=== PATIENT | male | born 1965 | race African-American/Black ===

== ENCOUNTER 2018-12-04 00:10 | Observation (INO) | payer OTHER ==
[~2018-12-04] VITALS: Ht 185.4 cm; Wt 90.7 kg
[2018-12-04] MEDS ORDERED: ASPIRIN 81 MG CHEW TAB PO ONE ×3 (00:15→13:45)
[2018-12-04 01:23] LABS: BASOPHILS # (AUTO) 0.1 (0.0-0.1); BASOPHILS % 0.9 % (0.0-1.0); EOSINOPHILS % 0.5 % (0.0-6.0); HEMOGLOBIN 15.2 g/dL (14.0-18.0); LYMPHOCYTES # (AUTO) 3.5 (1.0-3.2); MEAN CORPUSCULAR HEMOGLOBIN 29.6 pg (28-32); MEAN CORPUSCULAR HGB CONC 33.8 g/dL (31-35); MEAN CORPUSCULAR VOLUME 87.5 fL (81-99); MONOCYTES # (AUTO) 0.6 (0.2-0.8); MONOCYTES % 9.4 % (4.4-11.3); NEUTROPHILS # (AUTO) 1.7 (2.1-6.9); PLATELET COUNT 229 x10e3/uL (140-360); RED BLOOD COUNT 5.14 x10e6/uL (4.3-5.7); RED CELL DISTRIBUTION WIDTH 14.2 % (11.7-14.4)
[2018-12-04 01:24] LABS: AMPHETAMINES SCREEN,URINE NEGATIVE (NEGATIVE); BENZODIAZEPINES SCREEN,URINE NEGATIVE (NEGATIVE); PHENCYCLIDINE SCREEN,URINE NEGATIVE (NEGATIVE)
[2018-12-04 02:19] LABS: SODIUM 139 mmol/L (136-145)
[2018-12-04 02:20] LABS: ALANINE AMINOTRANSFERASE 28 IU/L (0-55); ALBUMIN 4.4 g/dL (3.5-5.0); ALBUMIN/GLOBULIN RATIO 1.5 (0.8-2.0); ALKALINE PHOSPHATASE 78 IU/L (40-150); ANION GAP 12.5 mmol/L (8-16); BLOOD UREA NITROGEN 19 mg/dL (7-26); BUN/CREATININE RATIO 15 (6-25); CALCIUM 9.8 mg/dL (8.4-10.2); CARBON DIOXIDE 27 mmol/L (22-29); CHLORIDE 103 mmol/L (98-107); CREATINE KINASE 777 IU/L (30-200); EST GLOMERULAR FILTRATION RATE > 60 ML/MIN (60-); GLUCOSE 89 mg/dL (74-118); POTASSIUM 3.5 mmol/L (3.5-5.1)
[2018-12-04] MEDS ORDERED: MORPHINE SULFATE INJ 4 MG/ML INJ 1ML IV PRN (02:30)
[2018-12-04] MEDS ORDERED: ONDANSETRON HCL INJ 2MG/ML 2ML 2 MG/ML VIAL IV PRN (02:30)
--- NOTE | 2018-12-04 02:37 | Diagnostic Imaging Report ---
EXAMINATION: CHEST SINGLE (NOT PORTABLE) INDICATION: ^CHEST PAIN ^[id number] ^0110 ^Y COMPARISON: None FINDINGS: TUBES and LINES: None. LUNGS: Lungs are well inflated. Lungs are clear. There is no evidence of pneumonia or pulmonary edema. PLEURA: No pleural effusion or pneumothorax. HEART AND MEDIASTINUM: The cardiomediastinal silhouette is unremarkable. BONES AND SOFT TISSUES: No acute osseous lesion. Soft tissues are unremarkable. UPPER ABDOMEN: No free air under the diaphragm. IMPRESSION: No acute thoracic abnormality. Signed by: Dr. Frederick Healy M.D. on 12/04/2018 2:34 AM
--- OUTSIDE RECORDS SUMMARY | 2018-12-04 03:27 | XMS REPORT ---
Author Author 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 Allergies, Adverse Reactions, Alerts This patient has no known allergies or adverse reactions. Medications This patient has no known medications. Results Test Description Test Time Test Comments Text Results Atomic Results Result Comments CHEST SINGLE (NOT PORTABLE) 2018-12-04 02:33:00 [place] [address] Patient Name: SETH REYNOSO MR #: [id number] : 1965 Age/Sex: 53/M Req #: [id number] Adm Physician: Ordered by: ALPESH YANCEY DO Report #: [id number] Location: ER Room/Bed: Procedure: [id number] DX/CHEST SINGLE (NOT PORTABLE) Exam Date: 12/04/18 Exam Time: 0110 REPORT STATUS: Signed EXAMINATION: CHEST SINGLE (NOT PORTABLE) I NDICATION: CHEST PAIN [id number] 0110 Y COMPARISON: None FINDINGS: TUBES and LINES: None. LUNGS: Lungs are well inflated. Lungs are clear. There is no evidence of pneumonia or pulmonary edema. PLEURA: No pleural effusion or pneumothorax. HEART AND MEDIASTINUM: The cardiomediastinal silhouette is unremarkable. BONES AND SOFT TISSUES: No acute osseous lesion. Soft tissues are unremarkable. UPPER ABDOMEN: No free air under the diaphragm. IMPRESSION: No acute thoracic abnormality. Signed by: Dr. Frederick Golden M.D. on 12/04/2018 2:34 AM Dictated By: BAILEE GOLDEN MD, MD 3 Transcribed By: PIERCE on 12/04/18233 COPY TO: ALPESH YANCEY DO
[2018-12-04 07:40] LABS: CREATINE KINASE 671 IU/L (30-200)
[2018-12-04] MEDS ORDERED: SODIUM CHLORIDE 0.9% 1000ML 1,000 ML IV SCH (09:45)
[2018-12-04 09:48] LABS: CHOL/HDL RATIO 2.8 (3.9-4.7)
[2018-12-04 10:09] LABS: THYROID STIMULATING HORMONE 2.216 uIU/mL (0.350-4.940)
[2018-12-04 11:52] VITALS: BP 112/83
[2018-12-04 12:01] VITALS: BP 112/83
[2018-12-04 12:02] VITALS: BP 112/83
--- NOTE | 2018-12-04 16:11 | Consultation ---
DATE OF CONSULTATION: 12/04/2018 REASON FOR CONSULTATION: Chest pain. HISTORY OF PRESENT ILLNESS: This is a 53-year-old male with history of hyperlipidemia and murmur. The patient presents to [facility] ER with complaints of left-sided chest pain. Cardiology was consulted to evaluate the patient. The patient seen in ER, reports yesterday he had several episodes of left-sided sharp pain, lasting few seconds, nonradiating, nonexertional. States he had played some golf without any problems, however, when he went home, noted the chest pain episodes. Denies any shortness of breath during the episode of any dizziness, lightheadedness. Currently, the patient has no chest pain since admission. Troponin I negative x2, less than 0.001; however, CK initial was 777, next 671. Of note, the patient reports having a round of golf prior to admission. PAST MEDICAL HISTORY: Hyperlipidemia and murmur. PAST SURGICAL HISTORY: Bilateral knee scopes and umbilical hernia repair that was in 2019. 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 He lives in [place]. However, he is here for next couple of weeks for work. He is . He denies any alcohol use. Tobacco use. FAMILY HISTORY: His father apparently is alive with a history of stroke. His mother is alive with a history of hyperlipidemia. HOME MEDICATIONS: Include simvastatin 20 mg once a day. ALLERGIES: NO KNOWN ALLERGIES. REVIEW OF SYSTEMS: GENERAL: Denies any fatigue, weakness, fevers, chills, or night sweats. SKIN: No rashes or bruises. HEENT: Denies any nausea, vomiting, vision changes, blurred vision, double vision, epistaxis, sore throat, swollen neck, or hoarseness. CARDIAC: Chest pain as above. Positive for dyspnea on exertion. Denies any orthopnea, PND, or lower extremity edema. Denies any palpitation. RESPIRATORY: Denies any shortness of breath, cough, or hemoptysis. GI: Reports good appetite. No nausea, vomiting, diarrhea, constipation, melena, hematochezia, or bright bloody stools. URINARY: Denies any frequency, urgency, polyuria, dysuria, or hematuria. VASCULAR: Denies any lower extremity edema or claudication. MUSCULOSKELETAL: Denies any muscle weakness and he is stiff. Positive for generalized joint pains. NEUROLOGIC: Denies any numbness, tingling, tremors, weakness, paralysis, fainting, or seizures. HEMATOLOGY: Denies any anemia, easy bruising. ENDOCRINE: Denies any heat or cold intolerance. No polyuria, polydipsia, or polyphagia. PHYSICAL EXAMINATION: VITAL SIGNS: Height 73 inches, weight 200 pounds, BMI 26. Temperature 97.8, pulse 67, respiratory rate 16, blood pressure 136/87, and pulse ox 100% on room air. GENERAL: Appears stated age, reliable informant. Well developed. SKIN: No rashes or bruises noted. HEENT: Normocephalic. Pupils equal, reactive. Extraocular motor intact. Trachea midline. No JVD. No thyromegaly. Oral mucosa pink. HEART: Regular rate and rhythm. Soft systolic murmur heard at the left sternal border. PMI about 4th and 5th intercostal space. LUNGS: Bilateral breath sounds. Clear to auscultation. Good airway entry. ABDOMEN: Soft, nontender, nondistended. No organomegaly noted. MUSCULOSKELETAL: Good muscle strength throughout. No swelling in the lower extremities. VASCULAR: +2 bilateral pulses, +1 DP and PT pulses bilaterally. NEUROLOGIC: Cranial nerves II through XII seem intact. LABORATORY DATA: Sodium 139, potassium 3.5, BUN 19, creatinine 1.3. CK 777, next 671. Troponin I less than 0.001, next less than 0.001. BNP 29. IMAGING: Chest x-ray, no acute abnormalities. EKG, showing sinus rhythm with inverted T-waves in inferior and lateral leads, and also LVH. ASSESSMENT: 1. Chest pain with mixed features. 2. Hyperlipidemia. 3. Hypertension. 4. Mildly elevated CK. PLAN: 1. The patient presents with chest pain, mixed features with risk factors. Long discussion with the patient regarding ischemic workup; the patient prefers to have a stress test here at the hospital, so we will go ahead and proceed with a nuclear treadmill stress test. 2. We will continue telemonitoring. 3. Echo has been ordered, will be reviewed by Cardiology attending. 4. We will check a TSH and lipid panel. 5. Start the patient on aspirin therapy. 6. Restart the patient's home statin therapy. 7. We will continue to monitor the patient and further recommendations from ischemic workup. Dictated by Alexis Ybarra NP Seen and examined Time 60 min Esthela Cummings MD DC/JIMENA /[id number] MTDD
--- NOTE | 2018-12-04 16:35 | NUR ---
PT COMPLETED STRESS TEST. STATED HE "NEEDED TO BE SOMEWHERE AND THIS IS TAKING TOO LONG". ED PENDING RESULTS AND ABOUT LEAVING AMA, PT VERBALIZED UNDERSTANDING AND RISKS. PROVIDED WITH CARDIO CONTACT INFO. DC.
--- NOTE | 2018-12-04 19:52 | History and Physical ---
HISTORY OF PRESENT ILLNESS: A 53-year-old male with no past medical history, came with chest pain, which is needle like chest pain. REVIEW OF SYSTEMS: CARDIOVASCULAR: He has chest pain, which is resolved. No shortness of breath. RESPIRATORY: No shortness of breath. No cough. GASTROINTESTINAL: No nausea or vomiting. No diarrhea. GENITOURINARY: No frequency. No dysuria. ALLERGIES: NOT ALLERGIC TO ANYTHING. SOCIAL HISTORY: He does not smoke and does not drink. PAST MEDICAL HISTORY: He denies any significant medical condition. PHYSICAL EXAMINATION: HEART: Showed regular rate and rhythm. Normal S1 and S2 sound. LUNGS: Clear bilaterally. ABDOMEN: Soft. EXTREMITIES: Show no evidence of cyanosis or hematoma. RADIOGRAPHIC AND LABORATORY DATA: On the EKG, we have a normal sinus rhythm with T-wave inversion in II, III, and aVF. Troponins x2 are negative. On the BMP; sodium 139, potassium 3.5, chloride 103, CO2 of 27, BUN 19, creatinine 1.30, and glucose 89. IMPRESSION: 1. Atypical chest pain. 2. Hypokalemia. 3. Chronic renal failure, stage 2 to 3. PLAN OF TREATMENT: Continue aspirin. Continue beta blockers. The patient going to be seen by Dr. Cummings, who is going to do a stress test and go from there. Continue monitoring troponins. The patient is on telemetry. MD DURGA Friedman/JIMENA /[id number]
[2018-12-04] MEDS ORDERED: ATORVASTATIN 40 MG TAB PO SCH (21:00)
--- NOTE | 2018-12-05 01:28 | Operative Report ---
DATE OF PROCEDURE: 12/04/2018 SURGEON: Esthela Cummings MD TITLE OF THE TEST: Nuclear cardiac stress test. TECHNICAL DETAILS: This was resting stress protocol. For the resting images, a total of 11 mCi of Myoview was given intravenously. Half an hour after that, proper SPECT imaging and scanning were done. The stress protocol was exercise testing with target heart rate of 141 per minute. At peak exercise almost at 10 minutes into exercise ,the patient was given 33 mCi of Myoview and half an hour after that, proper SPECT imaging and scanning were done. The patient tolerated the stress test. There were no complications. RESULTS: Cardiac stress test: 1. The protocol is Delroy with target heart rate of 141 per minute. 2. The patient exercised for total of 10 minutes and 15 seconds. 3. Heart rate increased from baseline 63 to 144 per minute. 4. Blood pressure increased from 138/90 to 170/84. 5. No chest pain. 6. EKG. Baseline EKG consistent with T-wave changes in multiple leads with exercise significant ST-segment depression were noted in leads II, III, aVF, and V5. Positive cardiac stress test by EKG criteria but no chest pain. Of note, the patient's baseline is abnormal with LVH and T-wave changes. NUCLEAR IMAGING: A- Myocardial perfusion: 1. Resting images. Resting images showed smooth distribution of the isotope in all segments with no abnormal uptake noted. 2. Stress images: Again smooth distribution of the isotopes in all segments with no abnormal uptake. In conclusion Normal perfusion imaging. B- Segmental wall motion: The left ventricle appears to be normal in size with no segmental wall motion abnormality. C- Heart volume: End-diastolic volume of 97 mm and systolic volume of 42 mm with left ventricular ejection fraction of 57% . IMPRESSION: 1. Normal myocardial perfusion. 2. Preserved left ventricular ejection fraction at 57% with no segmental wall motion abnormality. In conclusion, the study is low probability of coronary artery disease. Esthela Cummings MD MOJ/MODL /[id number] L[place]ON
[2018-12-05] MEDS ORDERED: ASPIRIN 81 MG ENTERIC COATED PO SCH (09:00)
--- NOTE | 2018-12-05 21:05 | Discharge Summary ---
HOSPITAL COURSE: A 53 years old male with no past medical history, came in with chest pain, which was very atypical. The patient was seen by Dr. Cummings, improvement advisor. EKG showed normal sinus rhythm with T-wave inversion in II, III, and aVF. Troponins x2 were negative. The patient was undergoing workup for atypical chest pain and then he decided to leave against medical advice. FINAL IMPRESSION: 1. Atypical chest pain. 2. Hypokalemia. Potassium was replaced. 3. Chronic renal failure, stage 2 to 3. The patient left against medical advice. MD DURGA Friedman/JIMENA /[id number]
== END 2018-12-04 18:24 | disposition left against medical advice (07) ==
LOC: ER 00:10 → ERHOLD 03:23 → IMCU 11:05
PROVIDERS: ADMIT Internal Medicine; ATTEND Internal Medicine
DX: R07.89 Other chest pain (principal); E87.6 Hypokalemia; N18.3 Chronic kidney disease, stage 3 (moderate); E78.5 Hyperlipidemia, unspecified; Z82.3 Family history of stroke
CPT/HCPCS: 36415; 71045; 78452; 80053; 80061; 80307; 82550; 82553; 83880; 84443; 84484; 85025; 93005; 93017; 93306; 99284; A9502; G0378; J2270; J2405